=== PATIENT | male | born 2000 | race American Indian/Alaskan Native ===

== ENCOUNTER 2020-10-08 14:09 | Emergency (ER) | payer MEDICAID ==
[2020-10-08] MEDS ORDERED: levETIRAcetam 500 MG TAB PO ONE (14:58)
--- NOTE | 2020-10-08 15:19 | Emergency Department Report ---
ED General Adult HPI - General Chief complaint: Seizure Stated complaint: SEIZURE Time Seen by Provider: 10/08/20 14:53 Source: EMS Mode of arrival: Stretcher Limitations: No Limitations - History of Present Illness Initial comments: This is a 20-year-old man who has had seizures for about 3 years last time prior to today was 3 months ago. He states he has been out of his Keppra for 2 months according to the nurse. Apparently had a generalized seizure today and presented mildly postictal. He is able however to communicate. He tells me that he has been well and that he suffered no injury secondary to the seizure. He has no complaint at this time. -: Sudden Severity scale (0 -10): 0 Consistency: now resolved Treatments Prior to Arrival: none - Related Data Allergies Allergy/AdvReac Type Severity Reaction Status Date / Time No Known Allergies Allergy Unverified 10/08/20 14:50 ED Review of Systems ROS: Stated complaint: SEIZURE Other details as noted in HPI Comment: All other systems reviewed and negative ED Past Medical Hx - Past Medical History Previous Medical History?: Yes Hx CVA: Yes Hx Seizures: Yes Additional medical history: HIV+ - Social History Smoking Status: Current Some Day Smoker Substance Use Type: None ED Physical Exam - General Limitations: No Limitations ED Course Vital Signs 10/08/20 10/08/20 10/08/20 14:46 14:47 14:49 Temperature 98.6 F 98.6 F Pulse Rate 94 H 94 H Respiratory 16 16 16 Rate Blood Pressure 115/72 Blood Pressure 115/72 [Left] O2 Sat by Pulse 98 98 98 Oximetry ED Medical Decision Making - Lab Data Result diagrams: 10/08/20 15:28 10/08/20 15:28 Laboratory Results - last 24 hr 10/08/20 10/08/20 10/08/20 15:28 15:28 15:28 WBC 8.7 RBC 4.05 Hgb 12.6 Hct 36.7 MCV 91 MCH 31 MCHC 34 RDW 12.6 L Plt Count 207 Lymph % (Auto) 14.3 [place] % (Auto) 7.4 H Eos % (Auto) 1.3 Baso % (Auto) 0.3 Lymph # (Auto) 1.3 [place] # (Auto) 0.6 Eos # (Auto) 0.1 Baso # (Auto) 0.0 Seg Neutrophils % 76.7 H Seg Neutrophils # 6.7 Sodium 138 Potassium 4.1 Chloride 103.5 Carbon Dioxide 30 Anion Gap 9 BUN 8 L Glucose 87 Calcium 8.7 Magnesium 2.20 Laboratory Results - last 24 hr 10/08/20 10/08/20 10/08/20 15:28 15:28 15:28 WBC 8.7 RBC 4.05 Hgb 12.6 Hct 36.7 MCV 91 MCH 31 MCHC 34 RDW 12.6 L Plt Count 207 Lymph % (Auto) 14.3 [place] % (Auto) 7.4 H Eos % (Auto) 1.3 Baso % (Auto) 0.3 Lymph # (Auto) 1.3 [place] # (Auto) 0.6 Eos # (Auto) 0.1 Baso # (Auto) 0.0 Seg Neutrophils % 76.7 H Seg Neutrophils # 6.7 Sodium 138 Potassium 4.1 Chloride 103.5 Carbon Dioxide 30 Anion Gap 9 BUN 8 L Creatinine 0.7 L Estimated GFR > 60 BUN/Creatinine Ratio 11 Glucose 87 Calcium 8.7 Magnesium 2.20 Critical care attestation.: If time is entered above; I have spent that time in minutes in the direct care of this critically ill patient, excluding procedure time. ED Disposition Clinical Impression: Seizure, Seizure disorder, HIV positive Disposition: DC-01 TO HOME OR SELFCARE Is pt being admited?: No Does the pt Need Aspirin: No Condition: Stable Instructions: Seizure, Adult, [id number], How to Care for Yourself When You Have HIV Additional Instructions: Follow-up with your infectious disease clinic and primary care. Referrals: PRIMARY MD JUAN ALBERTO [Primary Care Provider] - 3-5 Days [facility] [Provider Group] - 3-5 Days Time of Disposition: 16:19
[2020-10-08 15:41] LABS: Basophils % (Auto) 0.3 % (0.0-1.8); Eosinophils # (Auto) 0.1 K/mm3 (0.0-0.4); Eosinophils % (Auto) 1.3 % (0.0-4.3); Hematocrit 36.7 % (35.5-45.6); Hemoglobin 12.6 gm/dl (11.8-15.2); Lymphocytes # (Auto) 1.3 K/mm3 (1.2-5.4); Lymphocytes % (Auto) 14.3 % (13.4-35.0); Mean Corpuscular HGB Conc 34 % (32-34); Mean Corpuscular Volume 91 fl (84-94); Monocytes # (Auto) 0.6 K/mm3 (0.0-0.8); Monocytes % (Auto) 7.4 % (0.0-7.3); Platelet Count 207 K/mm3 (140-440); Red Blood Count 4.05 M/mm3 (3.65-5.03); Red Cell Distribution Width 12.6 % (13.2-15.2)
[2020-10-08 16:11] LABS: Blood Urea Nitrogen 8 mg/dL (9-20); Calcium 8.7 mg/dL (8.4-10.2); Hemolysis Index 9
[2020-10-08 16:18] LABS: BUN/Creatinine Ratio 11
[2020-10-08 17:06] VITALS: BP 120/78
== END 2020-10-08 17:10 | disposition home or self-care (01) ==
LOC: ED 14:09
DX: R56.9 Unspecified convulsions (principal); Z21 Asymptomatic human immunodeficiency virus [HIV] infection status; F17.200 Nicotine dependence, unspecified, uncomplicated; Z86.73 Personal history of transient ischemic attack (TIA), and cerebral infarction without residual deficits
CPT/HCPCS: 36415; 80048; 83735; 85025

== ENCOUNTER 2021-10-29 23:03 | Emergency (ER) | payer OTHER, MEDICAID ==
[2021-10-30 01:45] VITALS: BP 134/72
[2021-10-30] MEDS ORDERED: levETIRAcetam 500 MG TAB PO ONE (01:54)
--- NOTE | 2021-10-30 02:31 | Emergency Department Report ---
ED Seizure HPI - General Chief Complaint: Seizure Stated Complaint: SEIZURE Time Seen by Provider: 10/30/21 00:19 Source: patient, EMS Mode of arrival: Stretcher Limitations: No Limitations - Related Data Previous Rx's Medication Instructions Recorded Last Taken Type levETIRAcetam [Keppra TAB] 500 mg PO BID #60 tablet 10/30/21 Unknown Rx Allergies Allergy/AdvReac Type Severity Reaction Status Date / Time No Known Allergies Allergy Unverified 10/08/20 14:50 ED Review of Systems ROS: Stated complaint: SEIZURE Other details as noted in HPI ED Past Medical Hx - Past Medical History Previous Medical History?: Yes Hx CVA: Yes Hx Seizures: Yes Additional medical history: HIV+ - Surgical History Past Surgical History?: No - Social History Smoking Status: Never Smoker Substance Use Type: None - Medications Home Medications: Home Medications Medication Instructions Recorded Confirmed Last Taken Type levETIRAcetam [Keppra TAB] 500 mg PO BID #60 tablet 10/30/21 Unknown Rx ED Physical Exam - General Limitations: No Limitations ED Course Vital Signs 10/29/21 10/29/21 10/30/21 23:40 23:46 00:00 Temperature 97.6 F Pulse Rate 82 61 70 Respiratory 20 14 18 Rate Blood Pressure 123/68 117/68 Blood Pressure 123/68 [Left] O2 Sat by Pulse 100 94 94 Oximetry 10/30/21 10/30/21 10/30/21 00:16 00:30 00:46 Temperature Pulse Rate 69 66 68 Respiratory 18 17 17 Rate Blood Pressure 115/66 117/64 115/61 Blood Pressure [Left] O2 Sat by Pulse 94 96 97 Oximetry 10/30/21 10/30/21 10/30/21 01:00 01:16 01:30 Temperature Pulse Rate 69 77 90 Respiratory 18 17 12 Rate Blood Pressure 114/62 127/69 134/72 Blood Pressure [Left] O2 Sat by Pulse 96 96 98 Oximetry Critical care attestation.: If time is entered above; I have spent that time in minutes in the direct care of this critically ill patient, excluding procedure time. ED Disposition Disposition: 01 HOME / SELF CARE / HOMELESS Is pt being admited?: No Does the pt Need Aspirin: No Condition: Stable Additional Instructions: You to take your medications as prescribed and return to the emergency department if any problems. Prescriptions: levETIRAcetam [Keppra TAB] 500 mg PO BID #60 tablet Referrals: TANNER RANKIN MD [Primary Care Provider] - 3-5 Days Forms: Work/School Release Form(ED)
== END 2021-10-30 03:10 | disposition home or self-care (01) ==
LOC: ED 23:03
DX: R56.9 Unspecified convulsions (principal); Z79.899 Other long term (current) drug therapy
CPT/HCPCS: 99283